=== PATIENT | female | born 1995 | race American Indian/Alaskan Native ===

== ENCOUNTER 2017-01-01 00:08 | Emergency (ER) | payer SELFPAY ==
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
[2017-01-01 04:23] VITALS: BP 117/68
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
[2017-01-01] MEDS ORDERED: FLEXERIL PO ONE (06:16)
[2017-01-01] MEDS ORDERED: TORADOL IM ONE (06:16)
== END 2017-01-01 07:50 | disposition home or self-care (01) ==
LOC: ED 00:08
DX: S16.1XXA Strain of muscle, fascia and tendon at neck level, initial encounter (principal); S46.912A Strain of unspecified muscle, fascia and tendon at shoulder and upper arm level, left arm, initial encounter; S39.012A Strain of muscle, fascia and tendon of lower back, initial encounter; V49.9XXA Car occupant (driver) (passenger) injured in unspecified traffic accident, initial encounter; W22.10XA Striking against or struck by unspecified automobile airbag, initial encounter; Y93.89 Activity, other specified; Y99.8 Other external cause status; Y92.89 Other specified places as the place of occurrence of the external cause
CPT/HCPCS: 72125; 81025; J1885

== ENCOUNTER 2019-07-15 22:22 | Emergency (ER) | payer SELFPAY ==
[2019-07-15 22:31] VITALS: BP 134/53
--- NOTE | 2019-07-15 22:36 | Event Note ---
ED Screening Note Date of service: 07/15/19 Time: 22:34 ED Screening Note: Pt complains of headache x yesterday states Excedrin is not helping +photophobia denies hx of migraines, N/V/dizziness pain is at a 7/10 currently This initial assessment/diagnostic orders/clinical plan/treatment(s) is/are subject to change based on patients health status, clinical progression and re- assessment by fellow clinical providers in the ED. Further treatment and workup at subsequent clinical providers discretion. Patient/guardian urged not to elope from the ED as their condition may be serious if not clinically assessed and managed. Initial orders include: labs
== END 2019-07-16 01:00 | disposition left against medical advice (07) ==
LOC: ED 22:22
DX: G43.909 Migraine, unspecified, not intractable, without status migrainosus (principal); Z53.21 Procedure and treatment not carried out due to patient leaving prior to being seen by health care provider

== ENCOUNTER 2020-12-21 17:06 | Emergency (ER) | payer SELFPAY ==
[2020-12-21 18:19] VITALS: BP 154/66
--- NOTE | 2020-12-21 18:50 | Event Note ---
ED Screening Note Date of service: 12/21/20 Time: 18:49 ED Screening Note: Patient 25-year-old -[place] female who presents for bilateral lower abdominal pain and cramping for 3 days. Pain rated at 4/10. Pain is exacerbated by movement and palpation. Patient states pain radiated from bilateral flank to suprapubic. Patient denies vaginal bleeding. There is no abnormal vaginal discharge. LMP 4 weeks ago. . There are no other exacerbating or relieving factors. This initial assessment/diagnostic orders/clinical plan/treatment(s) is/are subject to change based on patients health status, clinical progression and re- assessment by fellow clinical providers in the ED. Further treatment and workup at subsequent clinical providers discretion. Patient/guardian urged not to elope from the ED as their condition may be serious if not clinically assessed and managed. Initial orders include:
--- NOTE | 2020-12-21 18:54 | Emergency Department Report ---
ED Abdominal Pain HPI - General Chief Complaint: Abdominal Pain Stated Complaint: SHARP STOMACH PAIN Time Seen by Provider: 12/21/20 18:51 Source: patient Mode of arrival: Ambulatory Limitations: No Limitations - History of Present Illness Initial Comments: Patient 25-year-old -[place] female who presents for bilateral lower abdominal pain and cramping for 3 days. Pain rated at 4/10. Pain is exacerbated by movement and palpation. Patient states pain radiated from bilateral flank to suprapubic. Patient denies vaginal bleeding. There is no abnormal vaginal discharge. LMP 4 weeks ago. . There are no other exacerbating or relieving factors. MD Complaint: abdominal pain, flank pain - Related Data Previous Rx's Medication Instructions Recorded Last Taken Type Naproxen [Naprosyn] 500 mg PO BID #30 tablet 01/01/17 Unknown Rx methOCARBAMOL [Robaxin TAB] 500 mg PO BID #20 tab 01/01/17 Unknown Rx cephALEXin [Keflex] 500 mg PO BID 7 Days #14 cap 12/21/20 Unknown Rx Allergies Allergy/AdvReac Type Severity Reaction Status Date / Time No Known Allergies Allergy Verified 01/01/17 00:17 ED Review of Systems ROS: Stated complaint: SHARP STOMACH PAIN Other details as noted in HPI Constitutional: denies: chills, fever Eyes: denies: eye pain, eye discharge, vision change ENT: denies: ear pain, throat pain Respiratory: denies: cough, shortness of breath, wheezing Cardiovascular: denies: chest pain, palpitations Endocrine: no symptoms reported Gastrointestinal: abdominal pain, nausea. denies: vomiting, diarrhea, constipation, melena Genitourinary: denies: urgency, dysuria, frequency, hematuria, discharge Musculoskeletal: back pain Skin: denies: rash, lesions Neurological: denies: headache, weakness, paresthesias Psychiatric: denies: anxiety, depression Hematological/Lymphatic: denies: easy bleeding, easy bruising ED Past Medical Hx - Past Medical History Previous Medical History?: No - Surgical History Past Surgical History?: No - Social History Smoking Status: Never Smoker Substance Use Type: Alcohol - Medications Home Medications: Home Medications Medication Instructions Recorded Confirmed Last Taken Type Naproxen [Naprosyn] 500 mg PO BID #30 tablet 01/01/17 Unknown Rx methOCARBAMOL [Robaxin TAB] 500 mg PO BID #20 tab 01/01/17 Unknown Rx cephALEXin [Keflex] 500 mg PO BID 7 Days #14 cap 12/21/20 Unknown Rx ED Physical Exam - General Limitations: No Limitations General appearance: alert, in no apparent distress - Head Head exam: Present: atraumatic, normocephalic - Eye Eye exam: Present: normal appearance - ENT ENT exam: Present: mucous membranes moist - Neck Neck exam: Present: normal inspection - Respiratory Respiratory exam: Present: normal lung sounds bilaterally. Absent: respiratory distress - Cardiovascular Cardiovascular Exam: Present: regular rate, normal rhythm, normal heart sounds. Absent: systolic murmur, diastolic murmur, rubs, gallop - GI/Abdominal GI/Abdominal exam: Present: soft, tenderness (mild bilat lower abd pain ), normal bowel sounds. Absent: distended, guarding, rebound, rigid, bruit, hernia - Rectal Rectal exam: Present: deferred - External exam: Present: other (deferred per patient ) - Extremities Exam Extremities exam: Present: normal inspection - Back Exam Back exam: Present: normal inspection, full ROM, CVA tenderness (L). Absent: CVA tenderness (R) - Neurological Exam Neurological exam: Present: alert, oriented X3, CN II-XII intact, normal gait - Psychiatric Psychiatric exam: Present: normal affect, normal mood - Skin Skin exam: Present: warm, dry, intact, normal color. Absent: rash ED Course Vital Signs 12/21/20 18:18 Temperature 98.8 F Pulse Rate 95 H Respiratory 20 Rate Blood Pressure 154/66 O2 Sat by Pulse 100 Oximetry ED Medical Decision Making - Lab Data Result diagrams: 12/21/20 18:59 Labs 12/21/20 12/21/20 18:59 Unknown WBC 8.9 RBC 4.28 Hgb 9.2 L Hct 29.8 L MCV 70 L MCH 21 L MCHC 31 RDW 18.7 H Plt Count 377 Lymph % (Auto) 26.5 [place] % (Auto) 6.0 Eos % (Auto) 2.9 Baso % (Auto) 1.1 Lymph # (Auto) 2.3 [place] # (Auto) 0.5 Eos # (Auto) 0.3 Baso # (Auto) 0.1 Seg Neutrophils % 63.5 Seg Neutrophils # 5.6 Urine Color Yellow Urine Turbidity Slightly-cloudy Urine pH 6.0 Ur Specific [place] 1.026 Urine Protein 30 mg/dl Urine Glucose (UA) Neg Urine Ketones Neg Urine Blood Mod Urine Nitrite Neg Urine Bilirubin Neg Urine Urobilinogen < 2.0 Ur Leukocyte Esterase Mod Urine WBC (Auto) 29.0 H Urine RBC (Auto) 2.0 U Epithel Cells (Auto) 11.0 Urine HCG, Qual Positive A - Medical Decision Making Patient DNA x3, did not respond for ultrasound, UA noted for wbc, luek, hcg urin is pos, pt did not respond for HCG Quant, , Attempt phone call to number . This is treatment pressure EKG this is a little more risky than on the same medicine will be irrigated with any form patient room [phone] advised was wrong number. Critical care attestation.: If time is entered above; I have spent that time in minutes in the direct care of this critically ill patient, excluding procedure time. ED Disposition Clinical Impression: UTI (urinary tract infection) during Qualifiers: Trimester: unspecified trimester Qualified Code(s): O23.40 - Unspecified infection of urinary tract in , unspecified trimester Abdominal pain during Qualifiers: Trimester: unspecified trimester Qualified Code(s): O26.899 - Other specified related conditions, unspecified trimester; R10.9 - Unspecified abdominal pain Disposition: ELOPED Is pt being admited?: No Does the pt Need Aspirin: No Condition: Stable Instructions: Abdominal Pain (ED), Abdominal Pain During , and Urinary Tract Infection Prescriptions: cephALEXin [Keflex] 500 mg PO BID 7 Days #14 cap Referrals: PRIMARY CAREMD [Primary Care Provider] - 3-5 Days MICHAELLE FRANCE JR, MD [Staff Physician] - 3-5 Days Forms: Work/School Release Form(ED) Time of Disposition: 22:25
[2020-12-21 19:25] LABS: Basophils # (Auto) 0.1 K/mm3 (0.0-0.1); Basophils % (Auto) 1.1 % (0.0-1.8); Eosinophils # (Auto) 0.3 K/mm3 (0.0-0.4); Eosinophils % (Auto) 2.9 % (0.0-4.3); Hematocrit 29.8 % (30.3-42.9); Hemoglobin 9.2 gm/dl (10.1-14.3); Lymphocytes # (Auto) 2.3 K/mm3 (1.2-5.4); Lymphocytes % (Auto) 26.5 % (13.4-35.0); Mean Corpuscular HGB Conc 31 % (30-34); Monocytes # (Auto) 0.5 K/mm3 (0.0-0.8); Platelet Count 377 K/mm3 (140-440); Red Blood Count 4.28 M/mm3 (3.65-5.03); Red Cell Distribution Width 18.7 % (13.2-15.2)
[2020-12-21 19:35] LABS: Mean Corpuscular Volume 70 fl (79-97)
[2020-12-21 21:24] LABS: Bilirubin,Urine NEG (Negative); Blood,Urine MOD (Negative); Color,Urine Yellow (Yellow); Urobilinogen,Urine < 2.0 mg/dL (<2.0)
[2020-12-21 21:41] LABS: HCG Qualitative,Urine Positive (Negative)
== END 2020-12-21 22:30 | disposition left against medical advice (07) ==
LOC: ED 17:06
DX: O23.40 Unspecified infection of urinary tract in pregnancy, unspecified trimester (principal); Z79.899 Other long term (current) drug therapy; Z3A.00 Weeks of gestation of pregnancy not specified
CPT/HCPCS: 36415; 81001; 81025; 84702; 85025; 86900; 86901; 87086; 99283